=== PATIENT | female | born 2000 | race Caucasian/White ===

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

== ENCOUNTER 2022-02-06 12:30 | Emergency (ER) | payer MEDICAID, OTHER ==
[~2022-02-06] VITALS: Ht 152.4 cm; Wt 81.8 kg
[2022-02-06 12:45] VITALS: BP 123/72
== END 2022-02-06 14:44 | disposition home or self-care (01) ==
LOC: EMS 12:30
DX: S60.011A Contusion of right thumb without damage to nail, initial encounter (principal); W23.0XXA Caught, crushed, jammed, or pinched between moving objects, initial encounter; Y93.89 Activity, other specified; Y92.89 Other specified places as the place of occurrence of the external cause; Y99.8 Other external cause status
CPT/HCPCS: 99283

== ENCOUNTER 2022-04-12 10:48 | Emergency (ER) | payer MEDICAID, OTHER ==
[~2022-04-12] VITALS: Ht 152.4 cm; Wt 89.0 kg
[2022-04-12 11:09] VITALS: BP 137/89
== END 2022-04-12 19:46 | disposition home or self-care (01) ==
LOC: EMS 19:46
DX: S60.455A Superficial foreign body of left ring finger, initial encounter (principal); X58.XXXA Exposure to other specified factors, initial encounter; Y93.89 Activity, other specified; Y92.89 Other specified places as the place of occurrence of the external cause; Y99.8 Other external cause status
CPT/HCPCS: 99284; Z7502

== ENCOUNTER 2022-05-13 14:58 | Emergency (ER) | payer MEDICAID ==
[~2022-05-13] VITALS: Ht 152.4 cm; Wt 86.4 kg
[2022-05-13 15:10] VITALS: BP 117/71
[2022-05-13] MEDS ORDERED: BACITRACIN 28 GM OINTMENT TP ONE (17:00)
== END 2022-05-13 16:55 | disposition home or self-care (01) ==
LOC: EMS 15:00
DX: T24.201A Burn of second degree of unspecified site of right lower limb, except ankle and foot, initial encounter (principal); F17.210 Nicotine dependence, cigarettes, uncomplicated; X19.XXXA Contact with other heat and hot substances, initial encounter; Y93.89 Activity, other specified; Y92.89 Other specified places as the place of occurrence of the external cause; Y99.8 Other external cause status
CPT/HCPCS: 16020; 99282; Z7502; Z7610